=== PATIENT | female | born 1990 | race Caucasian/White ===

== ENCOUNTER → 2019-07-14 11:50 | Outpatient (CLI) | payer BC, SELFPAY ==
--- NOTE | 2019-07-14 11:52 | DI.RAD.S_ITS ---
PROCEDURE: XR FOOT LT MIN 3V INDICATIONS: l foot pain TECHNIQUE: 3 views of the foot were acquired. COMPARISON: None. FINDINGS: Bones: No fractures or dislocations. No suspicious bony lesions. Soft tissues: No tibiotalar joint effusion. Achilles tendon appears normal. IMPRESSION: Normal for age, source of current foot pain symptoms is not seen. Dictated by: Bryan Jorge M.D. on 07/14/2019 at 12:12 Approved by: Bryan Jorge M.D. on 07/14/2019 at 12:13
== END ==
PROVIDERS: Visit Provider Physician Assistant
DX: M79.672 Pain in left foot (principal)
CPT/HCPCS: 73630

== ENCOUNTER → 2020-11-18 09:11 | Outpatient (CLI) | payer BC, SELFPAY ==
[2020-11-18] MEDS: COVID-19 VACC(MODERNA-1)/PF 100 MCG/0.5 ML VIAL IM (09:17)
== END ==
PROVIDERS: Visit Provider Internal Medicine
DX: Z23 Encounter for immunization (principal)
CPT/HCPCS: 0011A; 91301

== ENCOUNTER → 2020-12-15 09:26 | Outpatient (CLI) | payer BC, SELFPAY ==
[2020-12-15] MEDS: COVID-19 VACC #2, MRNA(MOD) 100 MCG/0.5 ML VIAL IM (09:29)
== END ==
PROVIDERS: Visit Provider Internal Medicine
DX: Z23 Encounter for immunization (principal)
CPT/HCPCS: 0012A; 91301

== ENCOUNTER → 2021-01-13 13:16 | Outpatient (CLI) | payer BC, SELFPAY ==
[2021-01-14 06:18] LABS: Varicella IgG Antibody 614 index (Immune >165)
== END ==
PROVIDERS: PCP Registered Nurse; Referring Provider Registered Nurse; Visit Provider Registered Nurse
DX: Z00.00 Encounter for general adult medical examination without abnormal findings (principal); Z01.84 Encounter for antibody response examination; Z79.899 Other long term (current) drug therapy; Z30.431 Encounter for routine checking of intrauterine contraceptive device
CPT/HCPCS: 36415; 86787

== ENCOUNTER → 2021-08-09 15:59 | Outpatient (CLI) | payer BC, SELFPAY ==
[2021-08-09 16:49] LABS: COVID19 -Nasal RAPID Negative (Negative)
== END ==
PROVIDERS: PCP Registered Nurse; Visit Provider Physician Assistant
DX: Z20.822 Contact with and (suspected) exposure to COVID-19 (principal)
CPT/HCPCS: 87635

== ENCOUNTER → 2021-09-26 10:59 | Outpatient (CLI) | payer BC, SELFPAY ==
[2021-09-28 13:02] LABS: QuantiFERON Mitogen Value >10.00 IU/mL (.); QuantiFERON Nil Value 0.14 IU/mL (.); QuantiFERON TB Gold Plus Negative (Negative); QuantiFERON TB1 Ag Value 0.21 IU/mL (.); QuantiFERON TB2 Ag Value 0.14 IU/mL (.)
== END ==
PROVIDERS: PCP Registered Nurse; Referring Provider Registered Nurse; Visit Provider Registered Nurse
DX: Z11.7 Encounter for testing for latent tuberculosis infection (principal)
CPT/HCPCS: 36415; 86480

== ENCOUNTER → 2022-04-12 12:24 | Outpatient (CLI) | payer BC, SELFPAY ==
[2022-04-14 15:36] LABS: QuantiFERON Mitogen Value >10.00 IU/mL (.); QuantiFERON Nil Value 0.02 IU/mL (.); QuantiFERON TB Gold Plus Negative (Negative); QuantiFERON TB1 Ag Value 0.03 IU/mL (.); QuantiFERON TB2 Ag Value 0.03 IU/mL (.)
== END ==
PROVIDERS: PCP Nurse Practitioner; Referring Provider Nurse Practitioner; Visit Provider Nurse Practitioner
DX: Z11.7 Encounter for testing for latent tuberculosis infection (principal)
CPT/HCPCS: 36415; 86480